=== PATIENT | female | born 1985 ===

== ENCOUNTER 2017-04-21 18:58 | Inpatient (IN) | payer SELFPAY ==
[2017-04-21] MEDS ORDERED: diphenhydrAMINE 50 MG/ML VIAL ONE (20:06)
[2017-04-21] MEDS ORDERED: Metoclopramide HCl 10 MG/2 ML VIAL ONE (20:06)
[2017-04-21] MEDS ORDERED: Ondansetron ODT 4 MG TAB SL PRN (21:46)
[2017-04-21] MEDS ORDERED: Sodium Chloride 0.9% 1,000 ML IV SCH (21:46)
[2017-04-21] MEDS: Ondansetron HCl/PF 4 MG/2 ML Vial IVP PRN (22:55)
[2017-04-21] MEDS: Sodium Chloride 0.9% 1,000 ML IV SCH (23:15)
[2017-04-22 01:59] LABS: Bilirubin Negative (Negative); Blood, Urine Negative (Negative); Glucose, Urine (Dipstick) Negative (Negative); Ketone, Urine Trace mg/dL (Negative); Nitrite Positive (Negative); Protein, Urine (Dipstick) Negative (Neg-Trace)
[2017-04-22 02:00] LABS: Bacteria/HPF Rare-Few HPF (None Seen); Hyaline Casts/LPF 0-3 HYALINE CAST LPF (0-3 Hyaline)
[2017-04-22 02:30] LABS: Amphetamine Not Detected (NotDetected); Methadone Not Detected (NotDetected); Methamphetamine Not Detected (NotDetected)
[2017-04-22 04:37] LABS: #Lymphocytes 1.7 thou/uL (1.20-3.40); #Monocytes 1.1 thou/uL (0.11-0.59); #Neutrophils 7.8 thou/uL (1.40-6.50); %Basophils 0.2 % (0.0-1.0); %Eosinophils 0.2 % (0.0-10.0); %Lymphocytes 15.7 % (21.0-51.0); %Monocytes 10.5 % (0.0-10.0); Hematocrit 38.2 % (36.0-47.0); Mean Platelet Volume 7.3 fL (7.4-10.4); Red Blood Cell (RBC) Count 4.21 mill/uL (4.20-5.40); White Blood Cell (WBC) Count 10.7 thou/uL (4.8-10.8)
[2017-04-22 04:55] LABS: Anion Gap 10 mmol/L (10-20); BUN (Urea Nitrogen) 13 mg/dL (7.0-18.7); Calc. Creatinine Clearance 0 mL/min (70-130); Carbon Dioxide 26 mmol/L (22-29); Chloride 110 mmol/L (98-107); Estimated GFR-MDRD 80
--- NOTE | 2017-04-22 05:21 | HP ---
CHIEF COMPLAINT: Nausea and vomiting. HISTORY OF PRESENT ILLNESS: This is a patient with a recent diagnosis of urinary tract infection about a month ago who presents with a several day history of nausea and vomiting, unable to keep down water or food with worsening bilateral back pain and side pain as well as suprapubic pain. This is moderate-severe, does not radiate, colicky in nature. She had chills, but denies any fever and otherwise does not have any diarrhea and no blood in her vomit. REVIEW OF SYSTEMS: All other systems reviewed and are negative. PAST MEDICAL HISTORY: Negative. PAST SURGICAL HISTORY: Negative. FAMILY HISTORY: Negative. ALLERGIES: No known drug allergies. MEDICATIONS: No medications. SOCIAL HISTORY: She vapes, has occasional ethanol use and denies any drug use. PHYSICAL EXAMINATION: VITAL SIGNS: Blood pressure 130/75, pulse 85, respirations 21, temperature 99, O2 sat 99% on room air. GENERAL: She is sleeping comfortably in no acute distress. EYES: Without icterus or injection. Pupils equal, round, and reactive to light. ENT: Dry mucous membranes. Normal pinna and a patent nares. CARDIOVASCULAR: Regular rate and rhythm without murmur, gallop or rub. LUNGS: Clear to auscultation without wheeze, rales, rhonchi or increased work of breathing. ABDOMEN: Bowel sounds positive. No palpable organomegaly. Suprapubic tenderness and bilateral CVA tenderness, without any guarding or rigidity. : Deferred. MUSCULOSKELETAL: No deformity or contracture. NEUROLOGIC: Cranial nerves II-XII intact and symmetric. Motor 5/5 in upper and lower extremities. Sensation intact to light touch in all 4 extremities. SKIN: Without wound or lesion. Warm and dry. LYMPHATIC: Without any axillary or cervical lymphadenopathy. PSYCHIATRIC: Mood and affect appropriate for her current medical condition and alert and oriented x3. LABORATORY DATA: Include a leukocytosis and a creatinine of 1.4, BUN of 25, platelets 431. A CT was performed and, per verbal report had bilateral stranding in the perirenal area. Her urine had positive leukocytes and nitrites. ASSESSMENT AND PLAN: 1. A 32-year-old female with severe sepsis secondary to pyelonephritis, severe by both leukocytosis and tachycardia documented on the physical exam of the ED provider with acute kidney injury. We will volume resuscitate and continue on maintenance fluids while she is not tolerating p.o. Plan on giving Rocephin waiting for urine culture. We will confirm that blood cultures were drawn from outside facility and send if she does not quickly improve and if they have not been drawn. 2. Acute renal failure secondary to sepsis and likely hypovolemia, volume resuscitation. Recheck in a.m. 3. Deep venous thrombosis prophylaxis with Lovenox. 4. Gastrointestinal prophylaxis with diet. 5. For nausea and vomiting, Zofran p.r.n. MTDD
[2017-04-22] MEDS: Ondansetron HCl/PF 4 MG/2 ML Vial IVP PRN (05:28)
[2017-04-22] MEDS: Sodium Chloride 0.9% 1,000 ML IV SCH ×4 (05:28→23:45)
--- NOTE | 2017-04-22 06:26 | HP-2 ---
CODE STATUS: FULL. PRIMARY CARE PHYSICIAN: None. ATTENDING: Dr. Abdi Dacosta RESIDENT: Dr. Fannie Vaughan CHIEF COMPLAINT: Nausea and vomiting. HISTORY OF PRESENT ILLNESS: This is a 32-year-old female with no past medical history who presents as a transfer from [place] ED for nausea and vomiting for about 3-4 days. She has been vomiting g reater than 10 times per day. She has diffuse abdominal pain that is in the center of her abdomen a s well as the middle of her left and right side. Her last bowel movement was 4 days ago. She has n ot eaten in about 4 days because she cannot tolerate p.o. including liquids. She reports that she h ad a UTI about a month ago, got antibiotics and finished the course of antibiotics and it was a natalya lar story because she came into the ER with nausea and vomiting and was found to have a UTI as well as acute kidney injury at the time. She was told to follow up and get labs checked, but never did t hat. She denies any fever, but has had some chills. In the ER, she was given 8 mg Zofran, 1 gram R ocephin IV as well as Phenergan and normal saline. PAST MEDICAL HISTORY: No past medical history. PAST SURGICAL HISTORY: None. ALLERGIES: No known drug allergies. MEDICATIONS: None. FAMILY HISTORY: Dad, hyperlipidemia. Mom, hypothyroidism and hyperlipidemia. SOCIAL HISTORY: Tobacco, used to smoke one-half pack per day for 15 years, quit 6 months ago. Now she vapes. Alcohol occasionally use. No drug use. REVIEW OF SYSTEMS: GENERAL: Denies fever, reports chills. Denies fatigue. EYES: Denies eye pain. ENT: Denies rhinorrhea or sore throat. RESPIRATORY: Denies cough, shortness of breath. CARDIOVASCULAR: Denies chest pain, edema. GI: Reports nausea, vomiting, constipation, abdominal pain. GENITOURINARY: Denies incontinence, dysuria, polyuria. SKIN: Denies rashes or lesions. MUSCULOSKELETAL: Denies pain or tenderness. NEUROLOGIC: Denies weakness, numbness. PSYCHIATRIC: Denies anxiety, depression. PHYSICAL EXAMINATION: VITAL SIGNS: Blood pressure 130/75, pulse 85, respiratory rate 21, temperature 99.0, pulse ox 99% o n room air, weight 71.21 kilograms. GENERAL: Alert and oriented x3, no acute distress, well-nourished, appropriately interactive. EYES: Pupils equal, round, reactive to light. Extraocular muscles intact. Conjunctivae within nor mal limits. ENT: Nasal mucosa and oropharynx within normal limits. NECK: Supple, no lymphadenopathy. CARDIAC: Regular rate and rhythm. No murmurs, gallops, 2+ radial and pedal pulses. LUNGS: Normal effort, no retractions, clear to auscultation bilaterally. SKIN: Warm, dry. No cyanosis or lesions. ABDOMEN: Soft, diffusely tender to palpation. No guarding or rebound. Normoactive bowel sounds. No mass or distention. No CVA tenderness. EXTREMITIES: No cyanosis or edema. MUSCULOSKELETAL: Structure and tone within normal limits. NEUROLOGIC: No focal deficits. GCS 15. PSYCHIATRIC: Appropriate. LABORATORY DATA: WBC 17.5, hemoglobin 15.5, hematocrit 49.4, platelets 431, sodium 139, potassium 3 .0, chloride 93, CO2 27, BUN 25.1, creatinine 1.4, GFR 51, glucose 118, calcium 10.24, total protein 10.0, albumin 4.9, total bilirubin 0.6, AST 29, ALT 24, alkaline phosphatase 80, lactic acid 2.3. test negative. Lipase 13. Urinalysis trace blood, greater than 300 protein, large leukoc yte esterase, positive nitrites, 40 ketones, 100, glucose, 5-10 RBCs, 20-50 WBCs, 2+ bacteria. CT a bdomen and pelvis showed bilateral fat stranding of both kidneys concerning for pyelo. ASSESSMENT AND PLAN: This is a 32-year-old female who presents with: 1. Acute complicated pyelonephritis. Patient has acute kidney injury, recently treated for urinary tract infection 1 month ago, not sure what antibiotics. 2. Elevated white count and lactate. We will get a urine culture. We will treat with Rocephin and normal saline at 150 mL per hour. 3. Acute kidney injury, I will give normal saline at 150 mL per hour, status post 2.5 liters normal saline in the emergency department. 4. Intractable nausea and vomiting. We will check a UDS. We will give Zofran. We will start with clears and advance diet as tolerated. 5. Hypokalemia, status post 60 mEq in normal saline in the ED in [place]. We will recheck BMP in the morning and replete as needed. 6. Elevated lactic acid, likely secondary to acute complicated pyelo. We will recheck and we will give normal saline and antibiotics. 7. Leukocytosis secondary to acute complicated pyelo, we will give normal saline and Rocephin. 8. Thrombocytosis, likely acute phase reaction. We will monitor. 9. Venous thromboembolism prophylaxis, sequential compression devices. DISPOSITION: Admit to medical. Symptomatic medication will be provided. History and physical exam as well as management discussed with Dr. Dacosta.
[2017-04-22] MEDS ORDERED: Potassium Chloride 40 MEQ in Premix Bag 1 BAG IVPB SCH (07:45)
[2017-04-22 08:27] VITALS: BMI 31.1
[2017-04-22] MEDS ORDERED: Potassium Chloride 40 MEQ, Admixture Fee 1 EACH in Sodium Chloride 0.9% 250 ML 250 ML IVPB SCH (08:30)
--- NOTE | 2017-04-22 08:36 | PDOC.FM ---
- Subjective Subjective: No acute events overnight. Pt c/o persitent nausea and vomiting, abd pain as well as Rt CVA tenderness. Denies fever, chills, sweats. We will need culture and sensitivities form outside ER. Denies CP, SOB. - Objective Vital Signs & Weight: Vital Signs (12 hours) Temp Pulse Resp BP Pulse Ox 04/22/17 07:30 98.5 F 54 L 16 119/71 98 04/22/17 05:46 98.4 F 56 L 16 123/80 99 04/22/17 00:00 98.9 F 63 16 117/64 97 04/21/17 22:15 98.7 F 65 16 130/77 99 Weight Admit Weight 72.348 kg Weight 72.348 kg Result Diagrams: 04/22/17 03:26 04/22/17 03:26 <Max Licona - Last Filed: 04/22/17 08:34> - Objective Vital Signs & Weight: Vital Signs (12 hours) Temp Pulse Resp BP Pulse Ox 04/22/17 08:00 98.5 F 54 L 16 98 04/22/17 07:30 98.5 F 54 L 16 119/71 98 04/22/17 05:46 98.4 F 56 L 16 123/80 99 Weight Admit Weight 72.348 kg Weight 72.348 kg Result Diagrams: 04/22/17 03:26 04/22/17 03:26 <Art Chaparro - Last Filed: 04/22/17 15:28> Phys Exam - Physical Examination Constitutional: NAD HEENT: PERRLA, moist MMs, sclera anicteric Neck: no nodes, no JVD Respiratory: no wheezing, no rales, no rhonchi, clear to auscultation bilateral Cardiovascular: RRR, no significant murmur, no rub Gastrointestinal: soft, no distention, positive bowel sounds diffuse mild ttp Musculoskeletal: no edema, pulses present rt cva tenderness Neurological: non-focal, moves all 4 limbs Skin: no rash, normal turgor <Max Licona - Last Filed: 04/22/17 08:34> Dx/Plan (1) Pyelonephritis Code(s): N12 - TUBULO-INTERSTITIAL NEPHRITIS, NOT SPCF ACUTE OR CHRONIC Status: Acute (2) UTI (urinary tract infection) Status: Acute (3) Lactic acidosis Code(s): E87.2 - ACIDOSIS Status: Acute - Plan Plan: continue IV rocephin for now, will need outside ER records and UA results and hopefully transition to PO medications leukocytotsis resolved, lactic acidosis resolved continue IVF toradol prn for pain zofran prn for n/v <Max Licona - Last Filed: 04/22/17 08:34> Attending Addendum - Attending Addendum I personally evaluated the patient and discussed the management with Dr. Licona. I agree with the History, Examination, Assessment and Plan documented above with any addition or exceptions noted below. Patient doing improved this morning. Her labs have normalized with treatment for sepsis with abx and fluids. Her SHAAN has resolved, lactate normal, and her CVA tenderness improved. Will continue abx and await urine culture results. Also will work to get records of CT performed in [facility]. Pain control and nausea control as needed. <Art Chaparro - Last Filed: 04/22/17 15:28>
[2017-04-22] MEDS ORDERED: FLU VACC QS2017-18 36 mo. & older 0.5 ML SYRINGE IM ONE (09:00)
[2017-04-22] MEDS ORDERED: Ketorolac Tromethamine 30 MG/ML VIAL ONE ×2 (10:54→10:55)
[2017-04-22] MEDS ORDERED: Ondansetron HCl/PF 4 MG/2 ML Vial ONE (11:01)
[2017-04-22] MEDS ORDERED: Promethazine HCl 25 MG/ML VIAL IM SCH (12:45)
[2017-04-22] MEDS ORDERED: Ketorolac Tromethamine 30 MG/ML VIAL IM SCH (12:45)
[2017-04-22] MEDS ORDERED: cefTRIAXone\\ROCEPHIN 1 GM, Syringe 0.4 ML in Sterile Water 9.6 ML SLOW IVP SCH (17:00)
[2017-04-22] MEDS ORDERED: cefTRIAXone\\ROCEPHIN 1 GM in Sodium Chloride 0.9% 100 ML IVPB SCH (17:00)
[2017-04-22] MEDS ORDERED: Ketorolac Tromethamine 30 MG/ML VIAL IVP PRN (17:22)
[2017-04-23 04:29] LABS: #Basophils 0.1 thou/uL (0.0-0.2); #Eosinphils 0.1 thou/uL (0.0-0.7); #Monocytes 0.6 thou/uL (0.11-0.59); #Neutrophils 3.4 thou/uL (1.40-6.50); %Basophils 0.8 % (0.0-1.0); %Eosinophils 1.6 % (0.0-10.0); %Lymphocytes 32.5 % (21.0-51.0); %Monocytes 10.4 % (0.0-10.0); Hematocrit 37.4 % (36.0-47.0); Mean Platelet Volume 7.1 fL (7.4-10.4); Red Blood Cell (RBC) Count 4.11 mill/uL (4.20-5.40); White Blood Cell (WBC) Count 6.1 thou/uL (4.8-10.8)
[2017-04-23 04:43] LABS: Anion Gap 9 mmol/L (10-20); BUN (Urea Nitrogen) 7 mg/dL (7.0-18.7); Calc. Creatinine Clearance 122 mL/min (70-130); Calcium 8.1 mg/dL (7.8-10.44); Carbon Dioxide 25 mmol/L (22-29); Chloride 107 mmol/L (98-107); Estimated GFR-MDRD 89
[2017-04-23] MEDS: Sodium Chloride 0.9% 1,000 ML IV SCH (05:53)
[2017-04-23] MEDS ORDERED: Benzonatate 100 MG CAP PO PRN (08:16)
--- NOTE | 2017-04-23 08:19 | PDOC.FM ---
- Subjective Subjective: No acute events overniught. Pt reports improvement in abdominal pain and denies nausea/vomiting. Does endorse mild cough and scratchy throat. States she feels she can tolerate regular diet at this time. Denies CP, SOB, CVA tenderness. [facility] was contacted this AM, unfortunately they did not send the urine sample for a culture. We will attempt to culture the UA we have at our facility. - Objective Vital Signs & Weight: Vital Signs (12 hours) Temp Pulse Resp BP Pulse Ox 04/23/17 08:00 97.9 F 69 16 99 04/23/17 07:06 98.5 F 69 16 120/81 99 04/22/17 23:17 58 L Weight Admit Weight 72.348 kg Weight 72.348 kg I&O: 04/22/17 04/23/17 04/24/17 06:59 06:59 06:59 Intake Total 1800 Balance 1800 Result Diagrams: 04/23/17 03:55 04/23/17 03:55 <Max Licona - Last Filed: 04/23/17 08:17> - Objective Vital Signs & Weight: Vital Signs (12 hours) Temp Pulse Resp BP Pulse Ox 04/23/17 08:00 97.9 F 69 16 99 04/23/17 07:06 98.5 F 69 16 120/81 99 04/22/17 23:17 58 L Weight Admit Weight 72.348 kg Weight 72.348 kg I&O: 04/22/17 04/23/17 04/24/17 06:59 06:59 06:59 Intake Total 1800 Balance 1800 Result Diagrams: 04/23/17 03:55 04/23/17 03:55 <Art Chaparro - Last Filed: 04/23/17 11:05> Phys Exam - Physical Examination Constitutional: NAD HEENT: PERRLA, moist MMs, sclera anicteric Neck: no nodes, no JVD Respiratory: no wheezing, no rales, no rhonchi, clear to auscultation bilateral Cardiovascular: RRR, no significant murmur, no rub Gastrointestinal: soft, non-tender, no distention, positive bowel sounds Musculoskeletal: no edema, pulses present no CVA tenderness Neurological: non-focal, normal sensation, moves all 4 limbs Psychiatric: normal affect <Max Licona - Last Filed: 04/23/17 08:17> Dx/Plan (1) Pyelonephritis Code(s): N12 - TUBULO-INTERSTITIAL NEPHRITIS, NOT SPCF ACUTE OR CHRONIC Status: Acute (2) UTI (urinary tract infection) Status: Acute (3) Lactic acidosis Code(s): E87.2 - ACIDOSIS Status: Acute - Plan Plan: lactic acidosis resolved unfortunately urine from outside ER not cultured we will advance pts diet and if tolerating po plan to DC with oral abx for total of 10 day course ua from our facility will be sent for culture, but there were only few bacteria seen from sample here pt vital are WNL and leukocytosis has resolved tessalon prn for cough <Max Licona - Last Filed: 04/23/17 08:17> Attending Addendum - Attending Addendum I personally evaluated the patient and discussed the management with Dr. Licona. I agree with the History, Examination, Assessment and Plan documented above with any addition or exceptions noted below. Patient feeling improved this morning. She has no pain complaints and has been afebrile with normalized WBC. Unfortunately, outside ER did not collect urine cultures, but we assume her infection is due to E.coli due to first occurrance. We will make sure she is tolerating normal diet well today and likely discharge home this afternoon to complete 10 day course of therapy. <Art Chaparro - Last Filed: 04/23/17 11:05>
[2017-04-23] MEDS ORDERED: Cefdinir 300 MG CAP PO SCH ×2 (11:45→21:00)
[2017-04-23 14:22] VITALS: BP 116/70; TEMP 98.1
[2017-04-23] MEDS ORDERED: Ketorolac Tromethamine 30 MG/ML VIAL IVP PRN ×2 (17:22)
== END 2017-04-23 14:22 | disposition home or self-care (01) | DRG 872 ==
LOC: ERS 18:58 → T4-B 20:44
PROVIDERS: ADMIT Emergency Medicine; ATTEND Emergency Medicine
DX: A41.9 Sepsis, unspecified organism (principal); N17.9 Acute kidney failure, unspecified; E87.2 Acidosis; N10 Acute pyelonephritis; N39.0 Urinary tract infection, site not specified; R65.20 Severe sepsis without septic shock; F17.211 Nicotine dependence, cigarettes, in remission; E87.6 Hypokalemia; D47.3 Essential (hemorrhagic) thrombocythemia; E86.1 Hypovolemia; B96.20 Unspecified Escherichia coli [E. coli] as the cause of diseases classified elsewhere
CPT/HCPCS: 36415; 80048; 80306; 81001; 81025; 83605; 85025; 87086; 90471; 90682; 96361; 96365; 96375; A4216; G0008; J0696; J1200; J1885; J2405; J2550; J2765; J3480; J7050; Q2036